=== PATIENT | male | born 1935 | race Caucasian/White ===

== ENCOUNTER 2016-05-02 19:41 | Emergency (ER) | payer MEDICARE ==
[2016-05-02 20:20] VITALS: BP 150/65; PULSE 66; RESP 20; TEMP 97.6; O2SAT 96
== END 2016-05-02 20:55 | disposition home or self-care (01) | DRG 594 ==
LOC: ED 19:41
DX: L97.929 Non-pressure chronic ulcer of unspecified part of left lower leg with unspecified severity (principal)
CPT/HCPCS: 99282; A6446

== ENCOUNTER 2016-05-13 17:14 | Inpatient (IN) | payer OTHER, MEDICARE ==
[2016-05-13 17:50] LABS: BASOPHILS % (AUTO) 1 % (0-3); EOSINOPHILS % (AUTO) 2 % (0-9); HEMATOCRIT 36 % (39-53); MEAN CORPUSCULAR HGB CONC 33.4 gm/dl (32.0-36.0); MEAN CORPUSCULAR VOLUME 94 fL (80-100); MONOCYTES % (AUTO) 5.4 % (0-12); NEUTROPHILS % (AUTO) 86.4 % (37-80)
[2016-05-13 18:07] LABS: ALBUMIN 2.9 gm/dl (3.4-5.0); ALT 13 IU/L (14-63); CALCIUM 9.2 mg/dl (8.5-10.1); GLOM FILT RATE 59 mL/min (>60); POTASSIUM 5.6 mMol/L (3.5-5.1); SODIUM 138 mMol/L (136-145)
[2016-05-13 18:08] LABS: APPEARANCE,URINE Clear; BILIRUBIN,URINE NEGATIVE (NEGATIVE); COLOR,URINE Yellow; GLUCOSE, URINE (UA) NEGATIVE (NEGATIVE); KETONES,URINE NEGATIVE (NEGATIVE); LEUKOCYTE ESTERASE ,URINE NEGATIVE (NEGATIVE); NITRATE,URINE NEGATIVE (NEGATIVE); OCCULT BLOOD,URINE TRACE INTACT (NEG-TRACE); UROBILINOGEN,URINE 0.2 (0.2-1.0 EU)
[2016-05-13 18:48] LABS: WBC,URINE 0-2 (0-5AV/HPF)
[2016-05-13] MEDS ORDERED: ENOXAPARIN 40 MG SOL SC SCH (21:00)
[2016-05-13] MEDS: MORPHINE SULFATE 10 MG/ML SOL IV PRN (22:29)
[2016-05-13] MEDS: SODIUM CHLORIDE 0.9% FLUSH 10 ML SOL IV SCH (22:30)
[2016-05-13] MEDS ORDERED: METOPROLOL SUCCINATE 50 MG ER TAB ONE (22:31)
[2016-05-13] MEDS: FUROSEMIDE 40 MG SOL IV SCH (22:32)
[2016-05-13] MEDS: TAMSULOSIN HYDROCHLORIDE 0.4 MG CAP PO SCH (22:33)
[2016-05-13] MEDS: ACETAMINOPHEN 325 MG PO PRN (22:33)
[2016-05-13] MEDS: METOPROLOL SUCCINATE 25 MG TAB.ER.24H PO SCH (22:33)
[2016-05-13] MEDS: GABAPENTIN 100 MG CAP PO SCH (22:33)
[2016-05-13] MEDS: SULFAMETHOXAZOLE/TRIMETHOPRI 800/160 MG PO SCH (22:34)
[2016-05-13] MEDS: ENOXAPARIN 40 MG SOL SC SCH (22:42)
[2016-05-14] MEDS: MORPHINE SULFATE 10 MG/ML SOL IV PRN (00:38)
[2016-05-14] MEDS: ACETAMINOPHEN 325 MG PO PRN ×2 (06:12→12:39)
[2016-05-14] MEDS: SODIUM CHLORIDE 0.9% FLUSH 10 ML SOL IV SCH ×5 (06:16→22:38)
[2016-05-14] MEDS ORDERED: PANTOPRAZOLE SODIUM 40 MG ECT PO SCH (09:00)
[2016-05-14] MEDS: PANTOPRAZOLE SODIUM 40 MG ECT PO SCH (09:30)
[2016-05-14] MEDS: SULFAMETHOXAZOLE/TRIMETHOPRI 800/160 MG PO SCH ×2 (09:30→20:05)
[2016-05-14] MEDS ORDERED: METOPROLOL SUCCINATE 50 MG ER TAB ONE (09:34)
[2016-05-14] MEDS: FUROSEMIDE 40 MG SOL IV SCH ×2 (09:41→20:06)
[2016-05-14] MEDS: METOPROLOL SUCCINATE 25 MG TAB.ER.24H PO SCH ×2 (09:46→20:07)
[2016-05-14] MEDS ORDERED: POLYETHYLENE GLYCOL 17 GM/1 TBS PDS PO PRN (13:50)
[2016-05-14] MEDS ORDERED: MAGNESIUM HYDROXIDE 30 ML SUS PO PRN (13:50)
[2016-05-14] MEDS: MELOXICAM 15 MG TAB PO SCH (18:20)
[2016-05-14] MEDS: TAMSULOSIN HYDROCHLORIDE 0.4 MG CAP PO SCH (20:05)
[2016-05-14] MEDS: GABAPENTIN 100 MG CAP PO SCH (20:06)
[2016-05-14] MEDS: APAP/HYDROCODONE 325/5 TAB PO PRN (20:52)
[2016-05-14] MEDS: ENOXAPARIN 40 MG SOL SC SCH (22:37)
[2016-05-15] MEDS: SODIUM CHLORIDE 0.9% FLUSH 10 ML SOL IV SCH ×4 (06:00→21:21)
[2016-05-15] MEDS: ACETAMINOPHEN 325 MG PO PRN (06:21)
[2016-05-15 07:19] LABS: CALCIUM 8.3 mg/dl (8.5-10.1); POTASSIUM 4.6 mMol/L (3.5-5.1)
[2016-05-15 07:21] LABS: BASOPHILS % (AUTO) 0 % (0-3); EOSINOPHILS % (AUTO) 5 % (0-9); HEMATOCRIT 31 % (39-53); MEAN CORPUSCULAR VOLUME 93 fL (80-100); MONOCYTES % (AUTO) 6.6 % (0-12); NEUTROPHILS % (AUTO) 74.2 % (37-80)
[2016-05-15] MEDS ORDERED: SENNOSIDES A AND B 8.6 MG TAB PO PRN (08:59)
[2016-05-15] MEDS ORDERED: LEVOFLOXACIN 25 MG/ML 500 MG in SODIUM CHLORIDE 0.9% 100 ML 100 ML IV SCH (09:00)
[2016-05-15] MEDS: SULFAMETHOXAZOLE/TRIMETHOPRI 800/160 MG PO SCH ×2 (09:35→20:44)
[2016-05-15] MEDS: FUROSEMIDE 40 MG SOL IV SCH ×2 (09:35→20:45)
[2016-05-15] MEDS: PANTOPRAZOLE SODIUM 40 MG ECT PO SCH (09:36)
[2016-05-15] MEDS: METOPROLOL SUCCINATE 25 MG TAB.ER.24H PO SCH ×2 (09:37→20:45)
[2016-05-15] MEDS: LEVOFLOXACIN 500 MG in 100 ML (PREMIX) IV SCH (09:51)
[2016-05-15] MEDS: APAP/HYDROCODONE 325/5 TAB PO PRN ×2 (13:22→20:44)
[2016-05-15] MEDS: MORPHINE SULFATE 10 MG/ML SOL IV PRN (16:44)
[2016-05-15] MEDS: MELOXICAM 15 MG TAB PO SCH (17:45)
[2016-05-15] MEDS: GABAPENTIN 100 MG CAP PO SCH (20:44)
[2016-05-15] MEDS: TAMSULOSIN HYDROCHLORIDE 0.4 MG CAP PO SCH (20:45)
[2016-05-15] MEDS: ENOXAPARIN 40 MG SOL SC SCH (21:07)
[2016-05-16] MEDS: SODIUM CHLORIDE 0.9% FLUSH 10 ML SOL IV SCH ×4 (03:02→15:40)
[2016-05-16 07:05] LABS: BASOPHILS % (AUTO) 0 % (0-3); EOSINOPHILS % (AUTO) 7 % (0-9); HEMATOCRIT 33 % (39-53); MEAN CORPUSCULAR HGB CONC 35.1 gm/dl (32.0-36.0); MEAN CORPUSCULAR VOLUME 94 fL (80-100); MONOCYTES % (AUTO) 7.8 % (0-12); NEUTROPHILS % (AUTO) 74.4 % (37-80)
[2016-05-16 07:22] LABS: CALCIUM 8.5 mg/dl (8.5-10.1); POTASSIUM 4.5 mMol/L (3.5-5.1)
[2016-05-16] MEDS: SULFAMETHOXAZOLE/TRIMETHOPRI 800/160 MG PO SCH ×2 (08:24→20:52)
[2016-05-16] MEDS: PANTOPRAZOLE SODIUM 40 MG ECT PO SCH (08:24)
[2016-05-16] MEDS: METOPROLOL SUCCINATE 25 MG TAB.ER.24H PO SCH ×2 (08:25→21:02)
[2016-05-16] MEDS: FUROSEMIDE 40 MG SOL IV SCH ×2 (08:26→15:15)
[2016-05-16] MEDS: APAP/HYDROCODONE 325/5 TAB PO PRN ×2 (08:27→13:52)
[2016-05-16] MEDS: LEVOFLOXACIN 500 MG in 100 ML (PREMIX) IV SCH ×2 (08:29→08:33)
[2016-05-16] MEDS: CLOTRIMAZOLE 1% CREAM TOP SCH ×2 (10:11→20:54)
[2016-05-16] MEDS: ACETAMINOPHEN 325 MG PO PRN ×2 (15:34→21:56)
[2016-05-16] MEDS: FUROSEMIDE 40 MG TAB PO SCH (15:50)
[2016-05-16] MEDS: MELOXICAM 15 MG TAB PO SCH (17:24)
[2016-05-16] MEDS: TAMSULOSIN HYDROCHLORIDE 0.4 MG CAP PO SCH (20:53)
[2016-05-16] MEDS: GABAPENTIN 100 MG CAP PO SCH (20:53)
[2016-05-16] MEDS: ENOXAPARIN 40 MG SOL SC SCH (21:03)
[2016-05-16] MEDS: CIPROFLOXACIN HCL 500 MG TAB PO SCH (21:08)
[2016-05-17] MEDS: ACETAMINOPHEN 325 MG PO PRN (05:51)
[2016-05-17 08:17] VITALS: BP 129/70; PULSE 68; RESP 18; TEMP 98.3
[2016-05-17] MEDS: METOPROLOL SUCCINATE 25 MG TAB.ER.24H PO SCH (08:32)
[2016-05-17] MEDS: PANTOPRAZOLE SODIUM 40 MG ECT PO SCH (08:33)
[2016-05-17] MEDS: SULFAMETHOXAZOLE/TRIMETHOPRI 800/160 MG PO SCH (08:33)
[2016-05-17] MEDS: FUROSEMIDE 40 MG TAB PO SCH ×2 (08:33→11:38)
[2016-05-17] MEDS: CLOTRIMAZOLE 1% CREAM TOP SCH (08:34)
[2016-05-17] MEDS: CIPROFLOXACIN HCL 500 MG TAB PO SCH (08:36)
[2016-05-17] MEDS ORDERED: LEVOFLOXACIN 500 MG TAB PO SCH (09:00)
[2016-05-17 11:35] VITALS: O2SAT 96
== END 2016-05-17 12:45 | disposition home or self-care (01) | DRG 292 ==
LOC: ED 17:14 → ACUTE CARE 20:22
PROVIDERS: ADMIT Family Medicine; ATTEND Family Medicine
DX: I50.9 Heart failure, unspecified (principal); L03.116 Cellulitis of left lower limb; L97.222 Non-pressure chronic ulcer of left calf with fat layer exposed; L97.822 Non-pressure chronic ulcer of other part of left lower leg with fat layer exposed; I83.028 Varicose veins of left lower extremity with ulcer other part of lower leg; N18.3 Chronic kidney disease, stage 3 (moderate)
CPT/HCPCS: 36415; 71020; 80048; 80053; 81001; 83880; 84484; 85025; 87040; 87070; 87077; 87186; 93005; 93306; 94760; 99221; 99231; 99283; J1650; J1940; J1956; J2270; A4450; A6232; A6402; A6446

== ENCOUNTER 2016-05-18 08:55 | Emergency (ER) | payer OTHER, MEDICARE ==
[2016-05-18 09:09] VITALS: RESP 20; TEMP 97.3
[2016-05-18] MEDS ORDERED: APAP/HYDROCODONE 325/5 TAB PO ONE (12:22)
[2016-05-18] MEDS ORDERED: APAP/HYDROCODONE 325/5 TAB ONE (12:27)
[2016-05-18 15:52] VITALS: BP 148/58; PULSE 66; O2SAT 97
== END 2016-05-18 13:53 | disposition home or self-care (01) | DRG 300 ==
LOC: ED 08:55
DX: I83.029 Varicose veins of left lower extremity with ulcer of unspecified site (principal); L97.922 Non-pressure chronic ulcer of unspecified part of left lower leg with fat layer exposed
CPT/HCPCS: 99282; 99283; A6232; A6402; A6446

== ENCOUNTER 2016-07-18 05:25 | Emergency (ER) | payer MEDICARE, OTHER ==
[2016-07-18] MEDS ORDERED: ALBUTEROL/IPRATROPIUM 1 VIAL SOL ONE (06:13)
[2016-07-18] MEDS: ALBUTEROL/IPRATROPIUM 1 VIAL SOL INH ONE (06:16)
[2016-07-18 06:58] LABS: CALCIUM 9.2 mg/dl (8.5-10.1); POTASSIUM 4.2 mMol/L (3.5-5.1)
[2016-07-18 07:00] VITALS: TEMP 99
[2016-07-18 07:07] LABS: BASOPHILS % (AUTO) 1 % (0-3); EOSINOPHILS % (AUTO) 3 % (0-9); HEMATOCRIT 40 % (39-53); MEAN CORPUSCULAR HGB CONC 34.6 gm/dl (32.0-36.0); MEAN CORPUSCULAR VOLUME 94 fL (80-100); MONOCYTES % (AUTO) 7.4 % (0-12); NEUTROPHILS % (AUTO) 65.4 % (37-80)
[2016-07-18 07:14] LABS: APPEARANCE,URINE Clear; BILIRUBIN,URINE NEGATIVE (NEGATIVE); COLOR,URINE Yellow; GLUCOSE, URINE (UA) NEGATIVE (NEGATIVE); KETONES,URINE NEGATIVE (NEGATIVE); LEUKOCYTE ESTERASE ,URINE NEGATIVE (NEGATIVE); NITRATE,URINE NEGATIVE (NEGATIVE); OCCULT BLOOD,URINE NEGATIVE (NEG-TRACE); UROBILINOGEN,URINE 0.2 (0.2-1.0 EU)
[2016-07-18] MEDS: LEVOFLOXACIN 500 MG (PREMIX) 500 MG/100 ML SOL IV ONE (07:23)
[2016-07-18] MEDS: SOLUMEDROL 125 MG/2 ML 125 MG/2 ML PDS IV ONE (07:23)
[2016-07-18 07:26] LABS: RBC,URINE 0-2 (0-3AV/HPF); WBC,URINE 0-1 (0-5AV/HPF)
[2016-07-18] MEDS ORDERED: SOLUMEDROL 125 MG/2 ML 125 MG/2 ML PDS ONE (07:28)
[2016-07-18] MEDS ORDERED: LEVOFLOXACIN 500 MG (PREMIX) 500 MG/100 ML SOL IV ONE (07:28)
[2016-07-18] MEDS: SODIUM CHLORIDE 0.9% FLUSH 10 ML SOL IV PRN (07:36)
[2016-07-18 10:00] VITALS: RESP 20
[2016-07-18 12:16] VITALS: BP 138/81; PULSE 84; O2SAT 95
== END 2016-07-18 10:50 | disposition home or self-care (01) | DRG 192 ==
LOC: ED 05:25
DX: J44.1 Chronic obstructive pulmonary disease with (acute) exacerbation (principal); J06.9 Acute upper respiratory infection, unspecified; R39.198 Other difficulties with micturition
CPT/HCPCS: 36415; 71020; 80048; 81001; 85025; 99284; J1956; J2930; J7620

== ENCOUNTER 2016-11-25 20:59 | Emergency (ER) | payer MEDICARE ==
[2016-11-25 21:34] VITALS: BP 158/68; PULSE 73; RESP 18; TEMP 97.6; O2SAT 96
[2016-11-25] MEDS ORDERED: TRAMADOL HYDROCHLORIDE 50 MG TAB PO ONE (21:51)
[2016-11-25] MEDS ORDERED: TRAMADOL HYDROCHLORIDE 50 MG TAB ONE (21:53)
== END 2016-11-25 22:10 | disposition home or self-care (01) | DRG 552 ==
LOC: ED 20:59
DX: M54.5 Low back pain (principal); G89.29 Other chronic pain
CPT/HCPCS: 73502; 99282

== ENCOUNTER 2017-01-11 22:35 | Emergency (ER) | payer MEDICARE ==
[2017-01-11 22:40] VITALS: RESP 18; TEMP 97.1
[2017-01-11 23:19] LABS: BASOPHILS % (AUTO) 1 % (0-3); EOSINOPHILS % (AUTO) 9 % (0-9); HEMATOCRIT 36 % (39-53); MEAN CORPUSCULAR HGB CONC 34.5 gm/dl (32.0-36.0); MEAN CORPUSCULAR VOLUME 93 fL (80-100); MONOCYTES % (AUTO) 10.9 % (0-12); NEUTROPHILS % (AUTO) 47.1 % (37-80)
[2017-01-11 23:26] LABS: CALCIUM 8.9 mg/dl (8.5-10.1); POTASSIUM 4.6 mMol/L (3.5-5.1)
[2017-01-12 00:21] VITALS: BP 158/67; PULSE 59; O2SAT 94
== END 2017-01-11 23:45 | disposition home or self-care (01) | DRG 392 ==
LOC: ED 22:35
DX: R10.13 Epigastric pain (principal); R11.0 Nausea; R51 Headache; R42 Dizziness and giddiness; R53.1 Weakness
CPT/HCPCS: 36415; 80048; 85025; 99283

== ENCOUNTER 2017-08-31 12:09 | Emergency (ER) | payer MEDICARE ==
[2017-08-31 12:32] VITALS: BP 164/75; PULSE 69; RESP 20; TEMP 96.9; O2SAT 95
[2017-08-31] MEDS ORDERED: KETOROLAC TROMETHAMINE 30 MG/ML SOL IM ONE (12:39)
[2017-08-31] MEDS ORDERED: KETOROLAC TROMETHAMINE 30 MG/ML SOL ONE (12:54)
== END 2017-08-31 14:12 | disposition home or self-care (01) | DRG 552 ==
LOC: ED 12:09
DX: M54.5 Low back pain (principal)
CPT/HCPCS: 96372; 99282; J1885

== ENCOUNTER 2018-02-03 19:41 | Emergency (ER) | payer MEDICARE ==
[2018-02-03 19:59] VITALS: BP 180/79; PULSE 84; RESP 20; TEMP 97.9; O2SAT 96
[2018-02-03] MEDS ORDERED: AMOXICILLIN 250 MG CAP PO ONE (20:58)
[2018-02-03] MEDS ORDERED: SUCRALFATE 1 GM TAB PO SCH (21:00)
[2018-02-03] MEDS ORDERED: AMOXICILLIN(FRIDGE) 125/5 ML BOTTLE ONE (21:05)
[2018-02-03] MEDS ORDERED: SUCRALFATE 1 GM TAB ONE (21:09)
[2018-02-03] MEDS ORDERED: AMOXICILLIN 125/5 ML BOTTLE PO ONE (21:15)
== END 2018-02-03 21:20 | disposition home or self-care (01) | DRG 192 ==
LOC: ED 19:41
DX: J44.9 Chronic obstructive pulmonary disease, unspecified (principal); R10.13 Epigastric pain; F17.200 Nicotine dependence, unspecified, uncomplicated
CPT/HCPCS: 99282; 99283; A9270-GY

== ENCOUNTER 2018-02-09 00:02 | Emergency (ER) | payer MEDICARE ==
[2018-02-09 00:34] VITALS: TEMP 96.7
[2018-02-09 01:33] VITALS: BP 150/78; PULSE 60; RESP 20; O2SAT 97
== END 2018-02-09 01:43 | disposition home or self-care (01) | DRG 392 ==
LOC: ED 00:02
DX: R10.9 Unspecified abdominal pain (principal)
CPT/HCPCS: 74019; 99282

== ENCOUNTER 2018-03-31 03:40 | Emergency (ER) | payer MEDICARE | END 2018-03-31 05:45 | disposition home or self-care (01) | LOC: ED 03:40 ==

== ENCOUNTER 2018-04-01 21:45 | Emergency (ER) | payer MEDICARE ==
[2018-04-01 22:15] LABS: BASOPHILS % (AUTO) 1 % (0-3); EOSINOPHILS % (AUTO) 4 % (0-9); HEMATOCRIT 37 % (39-53); LYMPHOCYTES % (AUTO) 22.8 % (10-50); MEAN CORPUSCULAR HEMOGLOBIN 32.2 pg (27.0-32.0); MEAN CORPUSCULAR HGB CONC 32.5 gm/dl (32.0-36.0); NEUTROPHILS % (AUTO) 64.3 % (37-80)
[2018-04-01 22:18] LABS: MEAN CORPUSCULAR VOLUME 99 fL (80-100)
[2018-04-01 22:23] LABS: INR 0.98 (0.86-1.12)
[2018-04-01 22:34] LABS: ALBUMIN 3.3 gm/dl (3.4-5.0); ALKALINE PHOSPHATASE 68 IU/L (46-116); ALT 12 IU/L (14-63); AST 14 IU/L (15-37); BILIRUBIN,TOTAL 0.3 mg/dl (0.2-1.0); BLOOD UREA NITROGEN 14 mg/dl (7-18); CALCIUM 8.9 mg/dl (8.5-10.1); CARBON DIOXIDE 29.3 mEq/L (21-32); CHLORIDE 102 mMol/L (98-107); CREATININE 1.11 mg/dl (0.80-1.30); GLUCOSE 109 mg/dl (74-106); POTASSIUM 4.1 mMol/L (3.5-5.1); SODIUM 140 mMol/L (136-145); TROP I < 0.017 ng/ml (0.000-0.056)
[2018-04-02 02:43] VITALS: O2SAT 96
[2018-04-02] MEDS ORDERED: ACETAMINOPHEN 325 MG PO ONE (04:01)
[2018-04-02] MEDS ORDERED: ACETAMINOPHEN 325 MG ONE (04:02)
[2018-04-02 06:32] VITALS: BP 143/76; PULSE 86; RESP 20; TEMP 98.1
== END 2018-04-02 07:25 | disposition home or self-care (01) | DRG 313 ==
LOC: ED 21:45
DX: R07.89 Other chest pain (principal); J18.9 Pneumonia, unspecified organism; I10 Essential (primary) hypertension; I48.91 Unspecified atrial fibrillation
CPT/HCPCS: 36415; 71046; 80053; 84484; 85025; 85610; 93005; 99284; 99285